=== PATIENT | male | born 2000 | race Two or more races ===

== ENCOUNTER 2023-09-17 08:05 | Emergency (ER) | payer MEDICAID ==
[~2023-09-17] VITALS: Ht 170.2 cm; Wt 54.0 kg
[2023-09-17 08:10] VITALS: O2SAT 98
[2023-09-17] MEDS ORDERED: DOXY100C5 MT (09:11)
[2023-09-17 09:58] VITALS: BP 109/70; PULSE 77; RESP 18; TEMP 98.8
== END 2023-09-17 10:01 | disposition home or self-care (01) ==
LOC: ER 08:12
DX: A74.89 Other chlamydial diseases (principal)
CPT/HCPCS: 99283

== ENCOUNTER 2024-05-01 00:55 | Emergency (ER) | payer MEDICAID ==
[~2024-05-01] VITALS: Ht 170.2 cm; Wt 57.9 kg
[~2024-05-01 00:55] MED LIST: DOXY100C5 MT
[2024-05-01 00:56] VITALS: O2SAT 98
[2024-05-01 01:06] VITALS: BP 122/74; PULSE 73; RESP 16; TEMP 37; O2SAT 97
[2024-05-01 02:49] LABS: BASOPHILS % 0.3 % (0.0-2.0); EOSINOPHILS % 1.6 % (0.0-5.0); HEMATOCRIT. 43.6 % (42.0-52.0); HEMOGLOBIN. 14.9 g/dL (14.0-18.0); LYMPHOCYTES % 20.9 % (20.0-50.0); MEAN CORPUSCULAR HEMOGLOBIN 32.2 pg (28.0-32.0); MEAN CORPUSCULAR HGB CONC 34.1 g/dL (31.0-37.0); MEAN CORPUSCULAR VOLUME 94.4 fL (80.0-94.0); MEAN PLATELET VOLUME 9.3 fl (7.4-10.4); MONOCYTES % 9.4 % (2.0-8.0); NEUTROPHILS % 67.8 % (40.0-76.0); PLATELET 235 x1000/uL (130-400); RED BLOOD CELL COUNT 4.62 mill/uL (4.7-6.1); RED CELL DISTRIBUTION WIDTH 14.1 % (11.6-14.6); WHITE BLOOD COUNT 10.3 x1000/uL (4.5-11.0)
[2024-05-01 02:50] LABS: CARBON DIOXIDE 27 mEq/L (21-32); CHLORIDE 103 mEq/L (98-107); POTASSIUM 3.5 mEq/L (3.5-5.1); SODIUM 139 mEq/L (136-145)
[2024-05-01 02:51] LABS: CALCIUM 9.8 mg/dL (8.7-10.4)
[2024-05-01 02:54] LABS: CLARITY URINE CLEAR (CLEAR); COLOR URINE YELLOW (YELLOW); GLUCOSE URINE NEGATIVE (NEGATIVE); KETONES URINE NEGATIVE (NEGATIVE); LEUKOCYTE ESTERASE URINE NEGATIVE (NEGATIVE); NITRITE URINE NEGATIVE (NEGATIVE); OCCULT BLOOD URINE NEGATIVE (NEGATIVE); PROTEIN URINE NEGATIVE (NEGATIVE); UROBILINOGEN URINE 0.2 E.U./dL (0.2-1.0)
[2024-05-01 02:55] LABS: CREATININE 0.8 mg/dL (0.6-1.3)
[2024-05-01 02:56] LABS: GLUCOSE 102 mg/dL (70-105); UREA NITROGEN BLOOD 10 mg/dL (9-23)
[2024-05-01 02:57] LABS: ALANINE AMINOTRANSFERASE 19 IU/L (10-49); ASPARTATE AMINOTRANSFERASE 20 IU/L (<34)
[2024-05-01 02:58] LABS: ALBUMIN 4.9 g/dL (3.2-4.8); BILIRUBIN DIRECT 0.2 mg/dL (<=3.0); BILIRUBIN TOTAL 0.8 mg/dL (0.1-1.0); PROTEIN TOTAL 7.6 g/dL (6.0-8.3)
[2024-05-03 07:12] LABS: CHLAMYDIA TRACHOMATIS NAA Negative (Negative); NEISSERIA GONORRHOEAE NAA Negative (Negative)
== END 2024-05-01 04:35 | disposition home or self-care (01) ==
LOC: ER 01:03
DX: Z11.3 Encounter for screening for infections with a predominantly sexual mode of transmission (principal); Z21 Asymptomatic human immunodeficiency virus [HIV] infection status
CPT/HCPCS: 36415; 80048; 80076; 81003; 85025; 86592; 87491; 87591; 99283